=== PATIENT | female | born 1940 | race African-American/Black ===

== ENCOUNTER 2019-02-15 12:58 | Outpatient (CLI) | payer OTHER ==
[2019-02-15 13:37] LABS: PLATELET COUNT 228 K/uL (152-353)
[2019-02-15 13:57] LABS: POTASSIUM 4.3 mmol/L (3.6-5.2)
== END 2019-02-15 19:48 | disposition home or self-care (01) ==
LOC: LAB 12:58
PROVIDERS: Internal Medicine Infectious Disease
DX: T82.7XXA Infection and inflammatory reaction due to other cardiac and vascular devices, implants and grafts, initial encounter (principal); L03.313 Cellulitis of chest wall
CPT/HCPCS: 80048; 85027